=== PATIENT | female | born 1985 | race Caucasian/White ===

== ENCOUNTER 2017-08-14 15:24 | Outpatient (CLI) ==
[2012-10-26 16:49] VITALS: TEMP 97.8
[2015-02-04 17:14] VITALS: BMI 20.7
== END 2017-08-14 15:25 | disposition home or self-care (01) ==
LOC: RHC-LAB 15:24
PROVIDERS: ATTEND Emergency Medicine
DX: D50.8 Other iron deficiency anemias (principal); F33.1 Major depressive disorder, recurrent, moderate; R53.82 Chronic fatigue, unspecified
CPT/HCPCS: 36415; 80053; 80061; 84443; 85025